=== PATIENT | male | born 1990 | race African-American/Black ===

== ENCOUNTER 2016-11-24 17:28 | Emergency (ER) | payer MEDICAID, OTHER ==
[~2016-11-24] VITALS: Ht 170.2 cm; Wt 111.1 kg
[2016-11-24] MEDS ORDERED: SODIUM CHLORIDE 0.9% 1,000 ML IVB ONE (18:05)
[2016-11-24] MEDS ORDERED: PANTOPRAZOLE SODIUM 40 MG/10 ML VIAL IV STA (18:05)
[2016-11-24 18:08] VITALS: BP 112/63
[2016-11-24] MEDS ORDERED: ONDANSETRON HCL 4 MG/2 ML VIAL IV ONE (18:15)
[2016-11-24] MEDS ORDERED: HYDROmorphone HCL 2 MG/ML VL IV ONE (18:15)
[2016-11-24 18:36] LABS: Basophils # (auto) 0 uL; Basophils % (auto) 0.1 % (0.0-2.0); Eosinophils # (auto) 0 uL; Eosinophils % (auto) 0.4 % (0.0-7.0); Hematocrit 50.2 % (41.0-53.0); Hemoglobin 16.7 g/dL (13.5-17.5); Lymphocytes # (auto) 0.1 uL; Lymphocytes % (auto) 1.8 % (10.0-50.0); Mean Corpuscular Hemoglobin 29.1 pg (28.0-32.0); Mean Corpuscular Hgb Conc. 33.3 g/dL (32.0-36.0); Mean Corpuscular Volume 87.6 fL (80.0-100.0); Mean Platelet Volume 8.6 fL (7.4-10.4); Monocytes # (auto) 0.3 uL; Monocytes % (auto) 3.7 % (0.0-12.0); Neutrophils # (auto) 7.7 uL; Platelet Count (auto) 229 10^3/uL (140-450); Red Cell Distribution Width 12.7 % (11.6-16.0); White Blood Cell 8.1 10^3/uL (4.4-10.8)
[2016-11-24 19:12] LABS: Albumin 4.1 g/dL (3.4-5.0); BUN/Creatinine Ratio 13.5; Calcium 8.7 mg/dL (8.5-10.1); Potassium 4.2 mmol/L (3.5-5.1)
[2016-11-24 19:15] LABS: Bilirubin, Total 0.5 mg/dL (0.2-1.0); Total Protein 7.8 g/dL (6.4-8.2)
== END 2016-11-24 19:48 | disposition home or self-care (01) ==
LOC: EDBD 17:38 → ER 17:38
DX: R10.9 Unspecified abdominal pain (principal); R11.2 Nausea with vomiting, unspecified; R50.9 Fever, unspecified; F12.10 Cannabis abuse, uncomplicated
CPT/HCPCS: 36415; 74176; 80053; 82150; 83690; 85025; 85049; 94761; 96361; 96374; 96375; 99285; C9113; J1170; J2405; J7030; 96365